=== PATIENT | male | born 1985 | race African-American/Black ===

== ENCOUNTER 2020-07-08 11:52 | Emergency (ER) | payer SELFPAY ==
--- NOTE | 2020-07-08 12:12 | ER Document Report ---
ED Medical Screen (RME) - General Chief Complaint: Leg Pain Stated Complaint: LEG PAIN/SWELLING Time Seen by Provider: 07/08/20 12:06 Primary Care Provider: [facility] [Provider Group] - Follow up as needed [facility] [Provider Group] - Follow up as needed SHRUTHI ALEXANDER MD [ACTIVE STAFF] - Follow up as needed Mode of Arrival: Ambulatory Information source: Patient Notes: 34-year-old male presented to ED for complaint of side pain since yesterday. He states he was injured when 500 pounds of wooden blocks fell on his left thigh he states he had the blocks on a wooden pallet going downhill when they hit something in the blocks bounced back hitting his thigh. Does have ecchymosis and swelling to the left thigh. Will get x-ray and creatinine and he will see another provider I have greeted and performed a rapid initial assessment of this patient. A comprehensive ED assessment and evaluation of the patient, analysis of test results and completion of medical decision making process will be conducted by an additional ED providers. - HPI Onset: Yesterday Onset/Duration: Sudden Quality of pain: Sharp Severity: Severe Pain Level: 5 Exacerbated by: Standing, Walking, Other - Weightbearing Relieved by: Sitting Similar symptoms previously: No Recently seen / treated by doctor: No - Related Data Smoking: Cigarettes - A third of a pack Frequency of alcohol use: Social Drug Abuse: Marijuana Allergies/Adverse Reactions: No Known Allergies Allergy (Unverified 07/08/20 12:00) Physical Exam - Vital signs Vitals: Temp Pulse Resp BP Pulse Ox 98.5 F 83 16 140/71 H 99 07/08/20 11:57 07/08/20 11:57 07/08/20 11:57 07/08/20 11:57 07/08/20 11:57 Course - Vital Signs Vital signs: Temp Pulse Resp BP Pulse Ox 98.3 F 72 14 135/84 H 100 07/08/20 16:14 07/08/20 16:14 07/08/20 16:14 07/08/20 16:14 07/08/20 16:14 Doctor's Discharge - Discharge Clinical Impression: Contusion of left leg, Left leg pain Condition: Stable Disposition: HOME, SELF-CARE Additional Instructions: You were seen today in the emergency department for left leg pain. Your x-ray was normal. Please continue ibuprofen 6 mg every 6 hours. Take the Highland for extreme pain when ibuprofen does not work. Rest, apply ice, elevate your leg. Use the Ben wrap to help with comfort. Use the crutches to stay off your leg to rest it. Follow-up with orthopedics if you are not better in the next month. Prescriptions: Hydrocodone/Acetaminophen [Highland 5-325 mg Tablet] 1 tab PO ASDIR PRN #12 tablet PRN Reason: Forms: Return to Work Referrals: [facility] [Provider Group] - Follow up as needed [facility] [Provider Group] - Follow up as needed SHRUTHI ALEXANDER MD [ACTIVE STAFF] - Follow up as needed
--- NOTE | 2020-07-08 13:47 | RADIOLOGY REPORT (SQ) ---
EXAM DESCRIPTION: FEMUR LEFT IMAGES COMPLETED DATE/TIME: 07/08/2020 1:15 pm REASON FOR STUDY: Pain and injury COMPARISON: None. NUMBER OF VIEWS: Two views. TECHNIQUE: Two radiographic images acquired of the left femur to include hip and knee in at least on e projection. LIMITATIONS: None. FINDINGS: MINERALIZATION: Normal. BONES: No acute fracture. No worrisome bone lesions. SOFT TISSUES: No obvious swelling or foreign body. OTHER: No other significant finding. IMPRESSION: NEGATIVE STUDY OF THE LEFT FEMUR. NO RADIOGRAPHIC EVIDENCE OF ACUTE INJURY. TECHNICAL DOCUMENTATION: JOB ID: [id number] [employer]- All Rights Reserved Reading location - IP/workstation name: [email or web address]
[2020-07-08] MEDS ORDERED: HYDROCODONE/ACETAMINOPHEN 5-325 MG TABLET PO ONE (15:57)
--- NOTE | 2020-07-08 15:57 | ER Document Report ---
HPI - HPI Time Seen by Provider: 07/08/20 12:06 Pain Level: 4 Context: Patient is a 34-year-old male who presents emergency department with a chief complaint of left anterior thigh pain. Patient states that he was off the clock at work and a large piece of wood had fallen on top of his left thigh. Patient states that he was able to walk. He feels a throbbing sensation. He took some ibuprofen, 800 mg last night and stated "it did not work." Patient did not take any extra ibuprofen this morning. He denies any past medical history. He does not take any medications on a regular basis. He is an everyday smoker. - ROS Systems Reviewed and Negative: Yes All other systems reviewed and negative - CONSTITUTIONAL Constitutional: DENIES: Fever, Chills - NEURO Neurology: DENIES: Headache - CARDIOVASCULAR Cardiovascular: DENIES: Chest pain - RESPIRATORY Respiratory: DENIES: Trouble Breathing, Coughing - GASTROINTESTINAL Gastrointestinal: DENIES: Abdominal Pain, Nausea, Patient vomiting - MUSCULOSKELETAL Musculoskeletal: REPORTS: Extremity pain - L thigh. DENIES: Swelling - DERM Skin Color: Normal Skin Problems: None Past Medical History - General Information source: Patient - Social History Smoking Status: Current Every Day Smoker Chew tobacco use (# tins/day): No Frequency of alcohol use: Social Drug Abuse: Marijuana Family History: Reviewed & Not Pertinent Vertical Provider Document - CONSTITUTIONAL Agree With Documented VS: Yes Exam Limitations: No Limitations General Appearance: No Apparent Distress - HEENT HEENT: Atraumatic, Normocephalic, PERRLA - NECK Neck: Normal Inspection - RESPIRATORY Respiratory: Breath Sounds Normal, No Respiratory Distress - CARDIOVASCULAR Cardiovascular: Regular Rate, Regular Rhythm Pulses: Normal: Posterior tibial, Dorsalis pedis - MUSCULOSKELETAL/EXTREMETIES Musculoskeletal/Extremeties: FROM, Tender - Left anterior thigh, No Edema - NEURO Level of Consciousness: Awake, Alert, Appropriate - DERM Integumentary: Warm, Dry, No Rash Course - Re-evaluation Re-evalutation: 07/08/20 15:53 Femur x-ray is unremarkable. Will place patient in Ben wrap and give him some crutches. We will also give him some pain medicine for pain relief. Advised him to continue ibuprofen 600 mg every 6 hours. Educated the patient on resting, icing, elevating. Capillary refill less than 3 seconds. Dorsalis pedis and posterior tibial pulses 2+. No vascular compromise noted. No evidence of compartment syndrome. Patient is able to flex his knee with no difficulty. Follow-up precautions were given. Verbal discharge instructions were given to the patient. They verbalized understanding. They are stable for discharge. - Vital Signs Vital signs: Temp Pulse Resp BP Pulse Ox 98.5 F 83 16 140/71 H 99 07/08/20 11:57 07/08/20 11:57 07/08/20 11:57 07/08/20 11:57 07/08/20 11:57 Procedures - Immobilization Left Anterior Thigh Pre-Proc Neuro Vasc Exam: Normal Immobilizer type: Ben wrap, Crutches Performed by: RN Post-Proc Neuro Vasc Exam: Normal, Unchanged from pre-exam Alignment checked and good: Yes Discharge - Discharge Clinical Impression: Left leg pain Contusion of left leg Qualifiers: Encounter type: initial encounter Qualified Code(s): S80.12XA - Contusion of left lower leg, initial encounter Condition: Stable Disposition: HOME, SELF-CARE Additional Instructions: You were seen today in the emergency department for left leg pain. Your x-ray was normal. Please continue ibuprofen 6 mg every 6 hours. Take the Leland for extreme pain when ibuprofen does not work. Rest, apply ice, elevate your leg. Use the Ben wrap to help with comfort. Use the crutches to stay off your leg to rest it. Follow-up with orthopedics if you are not better in the next month. Prescriptions: Hydrocodone/Acetaminophen [Leland 5-325 mg Tablet] 1 tab PO ASDIR PRN #12 tablet PRN Reason: Forms: Return to Work Referrals: [facility] [Provider Group] - Follow up as needed [facility] [Provider Group] - Follow up as needed SHRUTHI ALEXANDER MD [ACTIVE STAFF] - Follow up as needed
[2020-07-08 16:16] VITALS: BP 135/84
== END 2020-07-08 16:14 | disposition home or self-care (01) ==
LOC: ER 11:52
DX: S80.12XA Contusion of left lower leg, initial encounter (principal); W20.8XXA Other cause of strike by thrown, projected or falling object, initial encounter; F17.200 Nicotine dependence, unspecified, uncomplicated
CPT/HCPCS: 99284